=== PATIENT | male | born 1990 | race Caucasian/White ===

== ENCOUNTER 2017-06-12 23:47 | Emergency (ER) ==
[2017-06-12 23:58] VITALS: BP 128/80; TEMP 98.4; BMI 23.7
[2017-06-13] MEDS ORDERED: PROTONIX PO STA (00:26)
[2017-06-13] MEDS ORDERED: CARAFATE PO STA (00:26)
--- NOTE | 2017-06-13 00:29 | ED.PDOC ---
General ED Provider: Dr. ASHWIN KAPADIA Chief Complaint: Nausea/Vomiting Stated Complaint: Vomiting blood, i have been doing this for 5 years,. had EGD showed esophagitis, ( patient has papers) Time Seen by Physician: 00:27 Mode of Arrival: Walk-In Information Source: Patient Nursing and Triage Documentation Reviewed and Agree: Yes GI Complaint Exam - GI Bleed Complaint/Exam Patient Complains of: Reports: Vomiting blood Symptoms Are: Resolved Episodes Lasting: Minutes Severity: Denies: Blood-streaked stool, Black tarry stool, Bright red blood- rectum, Coffee ground emesis, Hematemesis Location of Pain: Reports: None Aggravating: Reports: None Alleviating: Reports: None Associated Signs and Symptoms: Denies: Back Pain, Pallor, Dizziness, Weakness, Syncope, Constipation, Nausea, Rectal pain, Bruising, Weight loss, Recent abnormal coags Related History: Reports: Similar episode GI Bleed Risk Factors: Reports: None Recent Colonoscopy: No Recent EGD: Yes Related Surgical History: Reports: None Abdominal Findings: Present: None Differential Diagnoses: Esophageal Varices, Esophagitis Review of Systems - Review Of Systems Constitutional: Reports: No symptoms Eyes: Reports: No symptoms Ears, Nose, Mouth, Throat: Reports: No symptoms Respiratory: Reports: No symptoms Cardiac: Reports: No symptoms GI: Reports: Nausea, Vomiting : Reports: No symptoms Musculoskeletal: Reports: No symptoms Skin: Reports: No symptoms Neurological: Reports: No symptoms Endocrine: Reports: No symptoms Hematologic/Lymphatic: Reports: No symptoms All Other Systems: Reviewed and Negative Past Medical History - Past Medical History Previously Healthy: Yes Endocrine: Reports: None Cardiovascular: Reports: None Respiratory: Reports: None Hematological: Reports: None Gastrointestinal: Reports: GERD, GI Bleed Genitourinary: Reports: None Neuro/Psych: Reports: None Musculoskeletal: Reports: None Cancer: Reports: None - Surgical History General Surgical History: Reports: None - Family History Family History: Reports: None - Social History Smoking Status: Current every day smoker, Light tobacco smoker Smoking Cessation Counseling Time: > 3 min - 10 min Hx Substance Use: Yes (IN THE PAST) Alcohol Screening: Occasionally - Immunizations Tetanus Shot up to Date: (UNKNOWN) Physical Exam - Physical Exam Appearance: Well-appearing, No pain distress, Well-nourished Eyes: REAGAN, EOMI, Conjunctiva clear ENT: Ears normal, Nose normal, Oropharynx normal Respiratory: Airway patent, Breath sounds clear, Breath sounds equal, Respirations nonlabored Cardiovascular: RRR, Pulses normal, No rub, No murmur GI/: Soft, Nontender, No masses, Bowel sounds normal, No Organomegaly Musculoskeletal: Normal strength, ROM intact, No edema, No calf tenderness Skin: Warm, Dry, Normal color Neurological: Sensation intact, Motor intact, Reflexes intact, Cranial nerves intact, Alert, Oriented Psychiatric: Affect appropriate, Mood appropriate Critical Care Note - Critical Care Note Total Time (mins): 0 Course - Course Hematology/Chemistry: 06/13/17 00:30 Orders, Labs, Meds: Lab Review 06/13/17 00:30 WBC 7.51 RBC 4.96 Hgb 14.8 Hct 42.6 MCV 85.9 MCH 29.8 MCHC 34.7 RDW Coeff of [place] 12.5 Plt Count 285 Immature Gran % (Auto) 0.3 Neut % (Auto) 67.9 Lymph % (Auto) 22.8 [place] % (Auto) 6.7 Eos % (Auto) 1.9 Baso % (Auto) 0.4 Immature Gran # (Auto) 0.0 Neut # 5.1 Lymph # 1.7 [place] # 0.5 Eos # 0.1 Baso # 0.0 Orders Category Date Time Status CBC W/ AUTO DIFF Stat LAB 06/13/17 00:30 Completed COMPREHENSIVE METABOLIC PANEL Stat LAB 06/13/17 00:30 Received Pantoprazole Sodium [Protonix] MEDS 06/13/17 00:26 Discontinued 40 mg PO ONCE STA Sucralfate Susp [Carafate] MEDS 06/13/17 00:26 Discontinued 1 gm PO ONCE STA Medications Discontinued Medications Generic Name Dose Route Start Last Admin Trade Name Freq PRN Reason Stop Dose Admin Pantoprazole Sodium 40 mg 06/13/17 00:26 06/13/17 00:42 Protonix PO 06/13/17 00:27 40 mg ONCE STA Administration Sucralfate 1 gm 06/13/17 00:26 06/13/17 00:44 Carafate PO 06/13/17 00:27 1 gm ONCE STA Administration Vital Signs: Temp Pulse Resp BP Pulse Ox 06/12/17 23:49 98.4 F 71 18 128/80 98 Departure - Departure Time of Disposition: 00:53 Disposition: HOME SELF-CARE Discharge Problem: Esophagitis Instructions: Corrosive Esophagitis (ED) Condition: Good Pt referred to PMD for follow-up: Yes Additional Instructions: no spicy food, no fried food. f/u with PMD Prescriptions: Ranitidine HCl [Zantac] 150 mg PO BIDAC #20 tablet Sucralfate Susp [Carafate] 1 gm PO ACHS #1 bottle Allergies/Adverse Reactions: Allergies cefaclor [From Ceclor] Adverse Reaction (Verified 06/12/17 23:58) erythromycin base [From Pediazole] Adverse Reaction (Verified 06/12/17 23:58) latex Adverse Reaction (Verified 06/12/17 23:58) peanut Adverse Reaction (Verified 06/12/17 23:58) sulfisoxazole [From Pediazole] Adverse Reaction (Verified 06/12/17 23:58) Home Medications: Ambulatory Orders Ranitidine HCl [Zantac] 150 mg PO BIDAC #20 tablet 06/13/17 Sucralfate Susp [Carafate] 1 gm PO ACHS #1 bottle 06/13/17 Disposition Discussed With: Patient, Family
[2017-06-13 00:36] LABS: BASOPHILS % (AUTO) 0.4 % (0.0-3.0); EOSINOPHILS # (AUTO) 0.1 K/ul (0.0-0.7); EOSINOPHILS % (AUTO) 1.9 % (0.0-7.0); HEMATOCRIT 42.6 % (42.0-52.0); HEMOGLOBIN 14.8 g/dl (14.0-18.0); IMMATURE GRANULOCYTE % (AUTO) 0.3 % (0.0-5.0); LYMPHOCYTES # (AUTO) 1.7 K/uL (0.60-3.4); LYMPHOCYTES % (AUTO) 22.8 (10.0-50.0); MEAN CORPUSCULAR HEMOGLOBIN 29.8 pg (27.0-31.0); MEAN CORPUSCULAR HGB CONC 34.7 (31.8-35.4); MEAN CORPUSCULAR VOLUME 85.9 fl (80.0-94.0); MONOCYTES # (AUTO) 0.5 K/uL (0.4-2.0); MONOCYTES % (AUTO) 6.7 (0-10); NEUTROPHILS # (AUTO) 5.1 K/ul (2.0-6.9); NEUTROPHILS % (AUTO) 67.9; PLATELET COUNT 285 10^3/uL (140-440); RED BLOOD COUNT 4.96 10^6/ul (4.70-6.10); WHITE BLOOD COUNT 7.51 K/ul (4.2-10.2)
[2017-06-13 00:54] LABS: ALBUMIN 3.3 g/dL (3.4-5.0); ANION GAP 10.9; BILIRUBIN,TOTAL 0.78 mg/dL (0.00-1.20); BUN/CREATININE RATIO 11.34; CALCIUM 9.3 mg/dL (8.2-10.2); CREATININE 0.97 mg/dL (0.60-1.10); POTASSIUM 3.9 mmol/L (3.5-5.1); TOTAL PROTEIN 6.6 g/dL (6.4-8.2)
== END 2017-06-13 01:06 | disposition home or self-care (01) ==
LOC: ED 23:47
DX: K20.9 Esophagitis, unspecified (principal); R74.8 Abnormal levels of other serum enzymes; F17.210 Nicotine dependence, cigarettes, uncomplicated
CPT/HCPCS: 36415; 80053; 85025; 99282